=== PATIENT | female | born 1965 | race Caucasian/White ===

== ENCOUNTER → 2017-10-06 12:14 | Outpatient (CLI) | payer OTHER, SELFPAY ==
[2017-10-06 13:40] LABS: D-Dimer Quantitative (DVT/PE) 3.72 FEU/ug/m (0.27-0.49)
== END ==
PROVIDERS: Visit Provider Emergency Medicine
DX: R06.02 Shortness of breath (principal)
CPT/HCPCS: 85379

== ENCOUNTER 2018-12-23 15:01 | Emergency (ER) | payer OTHER, SELFPAY ==
[2018-12-23 15:09] VITALS: BP 165/93; PULSE 85; RESP 19; O2SAT 97
--- NOTE | 2018-12-23 15:10 | EKG12_ITS ---
Test Reason : CP Blood Pressure : / mmHG Vent. Rate : 076 BPM Atrial Rate : 076 BPM P-R Int : 164 ms QRS Dur : 088 ms QT Int : 374 ms P-R-T Axes : 060 -35 045 degrees QTc Int : 420 ms Normal sinus rhythm Left axis deviation Low Voltage QRS (Limb Leads) Poor R-wave progression Abnormal ECG Confirmed by DEMOND MANN, REGINALD ([id number]), newspaper copy editor CÉSAR TURCIOS ([id number]) on 12/27/2018 2:19:58 PM Referred By: CATHLENE Confirmed By:REGINALD LAGOS MD
--- NOTE | 2018-12-23 15:10 | ED.DCSUM_ITS ---
- ER Visit Summary Date of Service: 12/23/18 Chief Complaint: Chest pain History of Present Illness: The patient is a 53 F who presents with chest pain. It started 5 hours ago. She was getting up out of a chair and felt a pain in the middle of her chest. She describes it as cramping. It is in the substernal region. Palpation makes it worse. Nothing makes it better. She felt a little bit nauseous after eating lunch today. No shortness of breath. No diaphoresis. Her only cardiac risk factor is a family history of cardiac disease. Her father had a heart attack at age 55. She is on no other medications. Physical Examination: Vital signs reviewed. HEENT exam unremarkable. Heart is regular rate and rhythm without murmurs. Lungs are clear to auscultation. Abdomen is soft and nontender. Extremities reveal no edema. Peripheral pulses are equal. Skin exam normal. Neurologic exam normal. Test Results: EKG sinus rhythm with no ischemic changes. Hemoglobin 15. Troponin normal. Chest x-ray normal Emergency Department Course and Treatment: The patient was given aspirin. This is likely chest wall pain from when she used her arms to lift herself out of the chair. Her TRISH score is 0. She has no other cardiac risk factors except for the family history. I feel she can be followed up as an outpatient. She will take NSAIDs for pain. Treatment Plan: [] Disposition: Discharge Impression: Chest wall pain This note was generated with [employer] dictation software. It may contain incorrect words, spelling, and punctuation that were not noted in review of the chart prior to signing
[2018-12-23 15:17] VITALS: BP 165/93; PULSE 72; RESP 14; TEMP 36.8; O2SAT 96; BMI 38.5
--- NOTE | 2018-12-23 15:20 | RAD_ITS ---
STUDY: X-RAY CHEST REASON FOR EXAM: Female, 53 years old. TECHNIQUE: COMPARISON: None. FINDINGS: The lungs are clear and expanded. There is no demonstrated pleural abnormality. Normal size heart. Normal mediastinum and monica. Normal visualized pulmonary arteries. Normal visualized aortic arch and descending thoracic aorta. Normal visualized thoracic spine. Normal visualized ribs, clavicles, and shoulders. There is no demonstrated abnormality of the visualized soft tissue structures of the upper abdomen. RAD/Chest 1 View (Portable) IMPRESSION: Normal x-ray examination of the chest. Electronically Signed: Jacklyn Rubi, at 15:43 EDT Tel , Service support ,
[2018-12-23] MEDS: Aspirin 81 MG TAB.CHEW 324 MG PO (15:45)
[2018-12-23 16:02] LABS: Absolute Lymphocyte Count 1.47 X10^3/ul (0.83-4.51); Absolute Neutrophil Count 3.3 X10^3/uL (2.0-7.7); Basophil# 0.02 X10^3/uL; Basophil% 0.4 % (0-1); Eosinophils% 1.8 % (0-5); Hematocrit 46.3 % (37-47); Hemoglobin 15.6 g/dl (12.0-15.0); Lymphocyte # 1.47 X10^3/ul (4.0); Lymphocyte % 26.9 % (19-41); Mean Corp Hgb Conc 33.7 g/gl (32-36); Mean Corpuscular Volume 91.9 fL (81-99); Mean Platelet Vol. 10.2 fl (6.2-12.0); Monocyte# 0.55 X10^3/uL; Monocyte% 10.1 % (0-10); Neutrophil # 3.32 X10^3/uL (2.7-7.7); Neutrophil % 60.8 % (47-70); Platelet Count 193 K/mm3 (150-450); RBC Distribution Width CV 12.3 % (11.6-14.6); RBC Distribution Width SD 41.2 fl (35.1-43.9); Red Blood Count 5.04 M/mm3 (4.2-5.4); White Blood Count 5.5 K/mm3 (4.4-11.0)
[2018-12-23 16:04] LABS: POSITIVE COUNT NO; POSITIVE DIFFERENTIAL NO; POSITIVE MORPHOLOGY NO
[2018-12-23 16:12] LABS: Anion Gap 6 (5-15); BUN 9 mg/dL (7-18); BUN/Creat Ratio 9.6 RATIO (10-20); Calcium,Total 8.4 mg/dL (8.5-10.1); Chloride 108 mmol/L (98-107); Creatinine, Serum 0.94 mg/dL (0.55-1.02); EST Glomerular Filtration Rate 67 mL/min (>60); Est Glom Filt Rate - Afr Amer 81 mL/min (>60); Estimated Creatinine Clearance 65.54 ml/min; Glucose 94 mg/dL (74-106); Potassium 3.6 mmol/L (3.5-5.1); Sodium Level 142 mmol/L (136-145)
[2018-12-23 16:15] VITALS: BP 147/89; PULSE 75; RESP 16; O2SAT 99
--- NOTE | 2018-12-23 16:16 | ED.DEP ---
ED Disposition - Plan for ED Patient: Disposition: Home or Assisted Living Instructions: CHEST PAIN, Uncertain Cause Referrals: Nevaeh Beasley MD [Primary Care Provider] -
== END 2018-12-23 16:30 | disposition home or self-care (01) ==
PROVIDERS: Emergency Provider Emergency Medicine; Family Provider Family Medicine; PCP Family Medicine
DX: R07.89 Other chest pain (principal)
CPT/HCPCS: 71045; 80048; 84484; 85025; 93005; 99284; A4216

== ENCOUNTER → 2020-08-30 14:00 | Outpatient (CLI) | payer OTHER, SELFPAY ==
[2020-08-30 13:12] VITALS: BMI 41.1
[2020-08-30 14:33] LABS: Estradiol 23.4 pg/mL
== END ==
PROVIDERS: PCP Family Medicine; Referring Provider Obstetrics & Gynecology; Visit Provider Obstetrics & Gynecology
DX: N95.1 Menopausal and female climacteric states (principal)
CPT/HCPCS: 36415; 82670; 83001

== ENCOUNTER 2021-09-02 16:04 | Outpatient (CLI) | payer OTHER, SELFPAY ==
[2021-09-06 22:11] LABS: HPV APTIMA, High Risk Negative (Negative)
== END 2021-09-02 23:59 | disposition home or self-care (01) ==
LOC: LABSPEC 16:05
PROVIDERS: PCP Family Medicine; Referring Provider Obstetrics & Gynecology; Visit Provider Obstetrics & Gynecology
DX: Z12.4 Encounter for screening for malignant neoplasm of cervix (principal)
CPT/HCPCS: 87624; 88175; G0145

== ENCOUNTER → 2023-02-17 | Outpatient (CLI) | payer OTHER, SELFPAY ==
--- NOTE | 2023-02-17 12:56 | US_ITS ---
INDICATION: endometriosis EXAMINATION: Ultrasound US Pelvis Non OB Complete With Transvaginal Imaging TECHNIQUE: Transabdominal and transvaginal pelvic ultrasound was performed. Grayscale, spectral waveform, and color flow Doppler evaluation of the adnexa. COMPARISON: None. FINDINGS: UTERUS: Anteverted. The uterus measures 8.8 x 4.0 x 2.6 cm. There is no uterine mass. The endometrial stripe measures 2 mm in AP diameter which is within normal limits. RIGHT OVARY: 2.1 x 1.5 x 1.4 cm. Non-enlarged, normal echogenicity. There is normal arterial inflow and venous outflow present in the right ovary. LEFT OVARY: Not visualized due to bowel gas.. FREE FLUID: None. US/Pelvic w/ Transvaginal IMPRESSION: No acute findings in the pelvis. Electronically Signed: Bijan Bain MD at 16:50 EDT ,
== END | disposition home or self-care (01) ==
LOC: US 12:54
PROVIDERS: PCP Family Medicine; Referring Provider Obstetrics & Gynecology; Visit Provider Obstetrics & Gynecology
DX: N80.9 Endometriosis, unspecified (principal)
CPT/HCPCS: 76830; 76856

== ENCOUNTER → 2025-03-09 | Outpatient (CLI) | payer OTHER, SELFPAY ==
[2025-03-09 11:31] LABS: Follicle Stimulating Hormone 66.4 mIU/mL
[2025-03-13 12:08] LABS: Anti-Mullerian Hormone,Serum < 0.015 ng/mL (.)
== END | disposition home or self-care (01) ==
PROVIDERS: PCP Family Medicine; Referring Provider Nurse Practitioner Family; Visit Provider Nurse Practitioner Family
DX: R53.83 Other fatigue (principal)
CPT/HCPCS: 36415; 82670; 83001; 83516